=== PATIENT | male | born 1970 | race Caucasian/White ===

== ENCOUNTER 2020-12-02 22:31 | Emergency (ER) | payer OTHER ==
[~2020-12-02] VITALS: Ht 177.8 cm; Wt 149.2 kg
--- NOTE | 2020-12-02 22:35 | NUR ---
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 REC'D NEXIUM PO WITH NO RELIEF. DENIED SOB, H/A OR DIZZINESS. PT WAS ASSISTED TO BED 4 VIA WC AND WAS PLACED ON A MONITOR . VSS. WILL CONT TO MONITOR ,
[2020-12-02 22:49] LABS: BASOPHILS % (AUTO) 0.3 % (0.0-2.0); EOSINOPHILS % (AUTO) 1.8 % (0.0-6.0); HEMATOCRIT 44 % (39-51); HEMOGLOBIN 14.8 g/dL (13.5-17.5); LYMPHOCYTES # (AUTO) 2.8 /CMM (0.8-4.8); LYMPHOCYTES % (AUTO) 28.3 % (20.0-44.0); MEAN CORPUSCULAR HGB CONC 34 g/dl (31.0-36.0); MEAN CORPUSCULAR VOLUME 85 fL (80-96); MONOCYTES # (AUTO) 0.8 /CMM (0.1-1.30); MONOCYTES % (AUTO) 8.3 % (2.0-12.0); NEUTROPHILS % (AUTO) 61.3 % (43.0-81.0); PLATELET COUNT (AUTO) 284 /CMM (150-450); RED BLOOD CELL COUNT(AUTO) 5.21 MIL/uL (4.5-6.0); WHITE BLOOD COUNT (AUTO) 9.8 K/uL (4.3-11.0)
[2020-12-02] MEDS ORDERED: PANTOPRAZOLE 40 MG VIAL IV ONE (23:00)
[2020-12-02] MEDS ORDERED: LORAZEPAM INJ 2 MG/ML VIAL IV ONE (23:00)
[2020-12-02] MEDS ORDERED: LORAZEPAM INJ 2 MG/ML VIAL ONE (23:06)
[2020-12-02] MEDS ORDERED: ONDANSETRON HCL/PF 4 MG/2 ML VIAL ONE (23:06)
[2020-12-02] MEDS ORDERED: PANTOPRAZOLE 40 MG VIAL ONE (23:06)
[2020-12-02 23:16] LABS: ALANINE AMINOTRANSFERASE 29 U/L (12-78); ALBUMIN 3.6 g/dL (3.4-5.0); ALKALINE PHOSPHATASE 111 U/L (46-116); ASPARTATE AMINOTRANSFERASE 17 U/L (15-37); B-TYPE NATRIURETIC PEPTIDE 51 PG/ML (0-125); BILIRUBIN,DIRECT 0.1 mg/dL (0.0-0.2); BILIRUBIN,TOTAL 0.5 mg/dL (0.2-1.0); CALCIUM, SERUM 10.1 mg/dL (8.5-10.1); CARBON DIOXIDE 32 mmol/L (21-32); CHLORIDE 99 mmol/L (98-107); CREATININE 1.2 mg/dL (0.6-1.3); GLUCOSE 158 mg/dL (74-106); POTASSIUM 3.9 mmol/L (3.5-5.1); SODIUM SERUM 140 mmol/L (136-145); TOTAL PROTEIN, SERUM 8.8 g/dL (6.4-8.2); UREA NITROGEN, BLOOD 12 mg/dL (7-18)
[2020-12-02] MEDS ORDERED: ONDANSETRON HCL/PF - ER 4 MG/2 ML VIAL IV ONE (23:30)
[2020-12-02] MEDS ORDERED: PANT40TA2 PO (23:52)
--- NOTE | 2020-12-03 00:10 | NUR ---
pt is medically stable for D/C. IV removed. Catheter intact and site benign. Pressure and 4x4 applied to site. No bleeding noted.Patient discharged to home in stable condition. Rx and Written and verbal after care instructions given. Patient verbalizes understanding of instruction.
--- NOTE | 2020-12-03 00:10 | NUR ---
pt will take an UBER back home
[2020-12-03 00:11] VITALS: BP 119/73
== END 2020-12-03 00:11 | disposition home or self-care (01) ==
LOC: ER 22:32
DX: F41.9 Anxiety disorder, unspecified (principal); K22.4 Dyskinesia of esophagus; R07.89 Other chest pain; Z88.0 Allergy status to penicillin; Z88.1 Allergy status to other antibiotic agents; Z88.8 Allergy status to other drugs, medicaments and biological substances
CPT/HCPCS: 36415; 71045; 80048; 80076; 83880; 84484; 85025; 85730; 93005 ×2; 96374; 96375; 99285; C9113; J2060; J2405